=== PATIENT | female | born 1965 | race Caucasian/White ===

== ENCOUNTER 2017-01-16 13:07 | Emergency (ER) | payer SELFPAY ==
[~2017-01-16 13:07] MED LIST: ATARAX PO; TYLENOL ES500 MG PO
== END 2017-01-16 14:15 | disposition left against medical advice (07) ==
LOC: MED 13:12
DX: M54.9 Dorsalgia, unspecified (principal); Z53.21 Procedure and treatment not carried out due to patient leaving prior to being seen by health care provider

== ENCOUNTER 2017-08-01 17:57 | Inpatient (IN) | payer MEDICAID ==
[~2017-08-01] VITALS: Ht 154.9 cm; Wt 92.5 kg
[~2017-08-01 17:57] MED LIST changes: +ACET-6134 PO; -ATARAX PO; -TYLENOL ES500 MG PO
[2017-08-01 18:09] VITALS: BP 157/94
--- NOTE | 2017-08-01 18:23 | NUR ---
Patient ambulated to bed 07.
--- NOTE | 2017-08-01 18:34 | NUR ---
DR WOLFF EVALUATING AAO PT WITH AT BEDSIDE
--- NOTE | 2017-08-01 18:34 | NUR ---
PATIENT PRESENTS TO ED WITH C/O LUQ PAIN 10/10 X 1 WK WITH NAUSEA; DENIES V/D HX; ANXIETY, DM, HTN RX; LANTIS, METOPROLOL, NAPROSIN, GABAPENTIN; SKIN IS PINK/WARM/DRY; AAOX4 WITH EVEN AND STEADY GAIT; LUNGS CLEAR BL; HR EVEN AND REGULAR; PT DENIES ANY FEVER, CP, SOB, OR COUGH AT THIS TIME; PATIENT STATES PAIN OF 10/10 AT THIS TIME; VSS; PATIENT POSITIONED FOR COMFORT; HOB ELEVATED; BEDRAILS UP X2; BED DOWN. ER MD MADE AWARE OF PT STATUS.
[2017-08-01] MEDS ORDERED: ONDANSETRON 4 MG/2 ML VIAL IVP ONE (18:40)
[2017-08-01] MEDS ORDERED: PANTOPRAZOLE 40 MG INJ VIAL IVP ONE (18:40)
[2017-08-01] MEDS ORDERED: LORazepam 2 MG/ML VIAL IVP ONE (18:40)
[2017-08-01] MEDS ORDERED: NACL 0.9% 1,000 ML IV SCH (18:40)
--- NOTE | 2017-08-01 18:40 | NUR ---
Dr. Mario evaluating patient at bedside.
[2017-08-01 18:52] LABS: BASOPHILS # (AUTO) 0.6 K/uL (0.00-0.22); EOSINOPHILS # (AUTO) 0.1 K/uL (0-0.4); HEMATOCRIT 40.3 % (36-48); HEMOGLOBIN 13.5 g/dL (12.0-16.0); LYMPHOCYTES # (AUTO) 3.7 K/uL (2.5-16.5); MEAN CORPUSCULAR HEMOGLOBIN 28 pg (27-31); MEAN CORPUSCULAR HGB CONC 34 g/dL (33-37); MEAN CORPUSCULAR VOLUME 85 fL (80-94); MONOCYTES # (AUTO) 1.1 K/uL (0.8-1.0); NEUTROPHILS # (AUTO) 6.6 K/uL (1.8-7.7); PLATELET COUNT (AUTO) 391 K/uL (140-450); RED BLOOD CELL COUNT(AUTO) 4.76 MIL/uL (4.20-5.40); RED CELL DISTRIBUTION WIDTH 12.2 % (11.6-13.7); WHITE BLOOD COUNT (AUTO) 12.1 K/uL (4.8-10.8)
[2017-08-01 18:55] LABS: APPEARANCE,URINE CLEAR (CLEAR); BILIRUBIN,URINE NEGATIVE (NEGATIVE); BLOOD, URINE 2+ (NEGATIVE); COLOR,URINE YELLOW (YELLOW); LEUKOCYTE ESTERASE ,URINE NEGATIVE (NEGATIVE); NITRITE, URINE NEGATIVE (NEGATIVE); PH,URINE 6.5 (5.0-9.0); UGLUCOSE NEGATIVE (NEGATIVE)
[2017-08-01 19:04] LABS: RBC,URINE 11-20 (MOD) /HPF (0-5); WBC,URINE NONE SEEN /HPF (0-5)
[2017-08-01 19:08] LABS: ANION GAP 13.4 (8-16); CARBON DIOXIDE 27.8 mmol/L (21-32); CREATININE 0.9 mg/dL (0.6-1.3); POTASSIUM 3.2 mmol/L (3.5-5.1)
[2017-08-01 19:14] LABS: ALBUMIN 4.4 g/dL (3.4-5.0); TOTAL BILIRUBIN 0.4 mg/dL (0.0-1.0)
--- NOTE | 2017-08-01 19:22 | NUR ---
Pt report given to Pim RN. Transfer of care at this time.
--- NOTE | 2017-08-01 19:23 | NUR ---
GOT REPORT FROM VESTA, PT. RESTING IN BED, NO S/SX OF DISTRESS NOTED.
[2017-08-01] MEDS ORDERED: KETOROLAC 30 MG/ML VIAL IVP ONE (19:25)
[2017-08-01] MEDS ORDERED: ACETAMINOPHEN 325 MG TAB PO PRN (19:45)
--- NOTE | 2017-08-01 20:05 | NUR ---
Note marlyn in ED - 08/01/17 at 2107 by [facility] Patient will be admitted to care of . Admited to TELEMETRY. Will go to [id number]. Belongings list completed. Report to ANYA WARE.
--- NOTE | 2017-08-01 20:05 | NUR ---
Patient will be admitted to care of . Admited to TELEMETRY. Will go to room 110B. Belongings list completed. Report to ANYA WARE.
[2017-08-01 20:10] VITALS: BP 147/81
--- NOTE | 2017-08-01 20:10 | NUR ---
ADMITTED A 51F FROM ER. CAME BY EMILIO DUE TO LT LOWER QUADRANT ABDOMINAL PAIN WITH NAUSEA X1 WEEK. PT ON TELE MONITOR. AWAKE,ALERT AND ORIENTED X4. WITH FAMILY AT BEDSIDE. DENIES ANY PAIN A THIS TIME. SKIN ASSESSMENT DONE. SKIN INTACT. AMBULATE WITH SOME DIFFICULTY DUE TO HER SCIATIC NERVE PAIN PROBLEM. SHE SAID SHE HAD X 5 EPISODE OF DIARRHEA TODAY BUT IN SMALL AMOUNT. ORIENTED TO HOSPITAL ROUTINES , BED ON LOW POSITION,CALL LIGHT PLACED WITHIN EASY REACH. DR. HOLLAND CAME AND SEEN PT. WILL FOLLOW UP ADMIT ORDERS.
[2017-08-01 20:13] LABS: PROTHROMBIN TIME 11.2 secs (10.8-13.4)
[2017-08-01 20:18] LABS: BARBITURATE, URINE NEG. ng/ml (NEG <=200); BENZODIAZEPINE, URINE NEG. ng/mL (NEG <=200); CANNABINOID, URINE NEG. ng/mL (NEG <=50); COCAINE, URINE NEG. ng/mL (NEG <=300); OPIATE, URINE NEG. ng/mL (NEG <=2000); PHENCYCLIDINE SCREEN,URINE NEG. ng/mL (NEG <=25)
[2017-08-01 20:27] LABS: CHOL/HDL RATIO 5.1 (1-4.5); FREE T4 (FREE THYROXINE) 1.38 ng/dL (0.76-1.46); MAGNESIUM 1.9 mg/dL (1.8-2.4); PHOSPHORUS 3.1 mg/dL (2.5-4.9); THYROID STIMULATING HORMONE 0.82 uIU/mL (0.34-3.74)
[2017-08-01] MEDS: NACL 0.9% 1,000 ML IV SCH (20:34)
[2017-08-01] MEDS ORDERED: [UNRECOGNIZED DRUG - CODE] IV (20:55)
[2017-08-01] MEDS ORDERED: LORazepam 2 MG/ML VIAL IM/IVP PRN (20:55)
[2017-08-01] MEDS ORDERED: KCL 20 MEQ/WATER INJ PREMIX 200 ML IV SCH (21:00)
[2017-08-01] MEDS: INSULIN DETEMIR 100 UNITS/ML 10 ML VIAL SUBQ SCH (21:00)
[2017-08-01] MEDS: DOCUSATE SODIUM 100 MG GELCAP PO SCH (21:00)
--- NOTE | 2017-08-01 21:30 | NUR ---
BLOOD SUGAR WAS CHECKED AND RESULT 92. PT HASN'T BEEN EATING. LEVEMIR INSULIN DUE NOT GIVEN. WILL HAVE DR. HOLLAND AWARE.
[2017-08-01] MEDS ORDERED: INSULIN LISPRO SLIDING SCALE 100 UNITS/ML VIAL SUBQ PRN (21:45)
[2017-08-01] MEDS ORDERED: DEXTROSE 50% 50 ML SYR IVP PRN (21:45)
--- NOTE | 2017-08-01 22:59 | NUR ---
KCL RIDER INFUSING BUT PT C/O OF TOO MUCH PAIN FROM THE IV MEDS. SHE REFUSED TO HAVE IT CONTINUE. PAGED DR. HOLLAND. CALLED BACK AND MADE AWARE. WILL CHANGED ORDER TO PO INSTEAD.
[2017-08-01] MEDS ORDERED: POTASSIUM CHLORIDE 10 MEQ TABER PO SCH (23:30)
[2017-08-02 00:24] VITALS: BP 143/85
--- NOTE | 2017-08-02 01:58 | NUR ---
PT HR ON THE MONITOR 143. CHECKED ON PT. AWAKE, JUST GOT BACK FORM THE BATHROOM. NO DISTRESS NOTED. JUST NAUSEATED. WILL MEDICATE ORDERED.
[2017-08-02] MEDS: ONDANSETRON 4 MG/2 ML VIAL IVP PRN ×3 (02:07→14:11)
--- NOTE | 2017-08-02 02:07 | NUR ---
AWAKE, JUST GOT UP TO THE BATHROOM. C/O OF NAUSEA. MEDICATED WITH ZOFRAN 4MG IVP ORDERED. WILL CONTINUE TO MONITOR.
--- NOTE | 2017-08-02 02:40 | NUR ---
MADE ROUNDS. PT ASLEEP. NO DISCOMFORT NOR PAIN NOTED. WILL CONTINUE TO MONITOR.
[2017-08-02 04:10] VITALS: BP 128/64
--- NOTE | 2017-08-02 05:45 | NUR ---
CALLED RADIOLOGY AND FOLLOW UP THE US KIDNEY, US VENOUS AND ARTERIAL ORDERS. TALKED TO KRYSTAL WALSH, SHE SAID US TECH TO BE HERE @ 0630 AM TODAY.
[2017-08-02] MEDS: BLOOD GLUCOSE MONITORING 1 DEV DEV FS SCH ×4 (06:17→21:00)
--- NOTE | 2017-08-02 06:17 | NUR ---
BLOOD SUGAR WAS CHECKED THIS AM RESULT 121. NO INSULIN COVERAGE NEEDED.
[2017-08-02 06:43] LABS: BASOPHILS # (AUTO) 0.4 K/uL (0.00-0.22); BASOPHILS % (AUTO) 3.5 % (0.0-2.0); EOSINOPHILS # (AUTO) 0.1 K/uL (0-0.4); EOSINOPHILS % (AUTO) 0.8 % (0.0-4.0); HEMATOCRIT 38.1 % (36-48); LYMPHOCYTES # (AUTO) 2.8 K/uL (2.5-16.5); LYMPHOCYTES % (AUTO) 26.8 % (20.5-51.1); MEAN CORPUSCULAR HEMOGLOBIN 29 pg (27-31); MEAN CORPUSCULAR HGB CONC 34 g/dL (33-37); MEAN CORPUSCULAR VOLUME 85 fL (80-94); MONOCYTES # (AUTO) 0.7 K/uL (0.8-1.0); MONOCYTES % (AUTO) 6.9 % (1.7-9.3); NEUTROPHILS # (AUTO) 6.6 K/uL (1.8-7.7); PLATELET COUNT (AUTO) 345 K/uL (140-450); RED BLOOD CELL COUNT(AUTO) 4.51 MIL/uL (4.20-5.40); RED CELL DISTRIBUTION WIDTH 12.3 % (11.6-13.7); WHITE BLOOD COUNT (AUTO) 10.6 K/uL (4.8-10.8)
[2017-08-02 07:00] LABS: CREATININE 0.8 mg/dL (0.6-1.3)
[2017-08-02 07:07] LABS: PHOSPHORUS 3.5 mg/dL (2.5-4.9)
--- NOTE | 2017-08-02 07:15 | NUR ---
RECEIVED PT REPORT FROM MACHINE REBUILDER NURSE AT BEDSIDE. PT IS AOX4. PT SHOWED NO S/S OF ACUTE DISTRESS. NO C/O PAIN AT THIS TIME. SKIN INTACT. IV NOTED ON THE RIGHT HAND, PATENT, AND INFUSING WELL. CALL LIGHT WITHIN REACH. BED LOWERED AND CALL LIGHT WITHIN REACH. WILL CONTINUE TO MONITOR.
--- NOTE | 2017-08-02 07:15 | NUR ---
ENDORSED PT IN STABLE CONDITION TO AM NURSE.
[2017-08-02 08:00] VITALS: BP 144/78
--- NOTE | 2017-08-02 08:45 | NUR ---
CM NOTE SPOKE WITH [facility] JOSE MCKEON. PER JOSE MCKEON, FOR ANY DISCHARGE NEEDS TO SEND TO [facility]. INITIAL REVIEW FAXED TO [facility] [phone] PH# [phone] AND TO [facility] [phone] JOSE MCKEON PH# [phone].
[2017-08-02] MEDS ORDERED: METOPROLOL SUCCINATE 50 MG TABER PO SCH (09:00)
--- NOTE | 2017-08-02 09:00 | NUR ---
PT KEPT NPO AFTER BREAKFAST. PT WALKED AROUND THE UNIT W/ HER . NO ACUTE S/S OF DISTRESS OR C/O PAIN. WILL CONTINUE TO MONITOR.
[2017-08-02] MEDS ORDERED: METO25TE2 PO (09:22)
--- NOTE | 2017-08-02 09:52 | NUR ---
PATIENT HAS BEEN SCREENED AND CATEGORIZED HIGH NUTRITION RISK. PATIENT WILL BE SEEN WITHIN 1-2 DAYS OF ADMISSION. 08/02/17-08/03/[address]
[2017-08-02] MEDS: DOCUSATE SODIUM 100 MG GELCAP PO SCH ×2 (09:58→21:57)
[2017-08-02] MEDS ORDERED: CALCIUM CARB/VIT-D 500 MG/200 IU 1 TAB PO SCH (10:30)
[2017-08-02] MEDS ORDERED: ATORVASTATIN 20 MG TAB PO SCH (10:30)
[2017-08-02 12:00] VITALS: BP 139/77
[2017-08-02] MEDS ORDERED: MAGNESIUM CITRATE 300 ML BTL PO SCH (12:00)
[2017-08-02] MEDS: LACTULOSE 20 GM/30 ML UDC PO SCH ×3 (12:59→21:57)
[2017-08-02] MEDS: SENNA 8.6 MG TAB PO SCH ×2 (12:59→16:55)
--- NOTE | 2017-08-02 13:50 | NUR ---
PT C/O OF NAUSEA AND ANXIETY, HOWEVER, PT DO NOT WANT THE IVP ATIVAN. NOTIFIED DR AND REQUESTED PO ATIVAN.
[2017-08-02] MEDS ORDERED: LORazepam 1 MG TAB PO PRN (14:05)
[2017-08-02] MEDS: NACL 0.9% 1,000 ML IV SCH (15:00)
[2017-08-02 16:18] VITALS: BP 152/80
[2017-08-02] MEDS: METOPROLOL SUCCINATE 50 MG TABER PO SCH (16:56)
--- NOTE | 2017-08-02 17:00 | NUR ---
PT WAS SLEEPING AND NO S/S OF RESPIRATORY DISTRESS. WILL CONTINUE TO MONITOR.
--- NOTE | 2017-08-02 19:43 | NUR ---
ENDORSED PT IN STABLE CONDITION TO PM NURSE.
--- NOTE | 2017-08-02 19:44 | NUR ---
RECEIVED REPORT FROM DAY NURSE, PT IS IN STABLE CONDITION. PT IS AAOX4, ON RA. PT IS AMBULATORY. IV TO R HAND 20G PATENT AND INTACT, INFUSING WELL. SKIN IS INTACT. RESPIRATIONS ARE EVEN AND UNLABORED. SKIN IS WARM AND DRY TO TOUCH. BOWEL SOUNDS ACTIVE. INITIAL ASSESSMENT COMPLETE. PLAN OF CARE DISCUSSED WITH PT AT THE BEDSIDE, VERBALIZED UNDERSTANDING. ALL SAFETY PRECAUTIONS MET, CALL LIGHT WITHIN REACH, WILL CONTINUE TO MONITOR
[2017-08-02 20:00] VITALS: BP 135/79
[2017-08-02] MEDS: INSULIN DETEMIR 100 UNITS/ML 10 ML VIAL SUBQ SCH (21:00)
--- NOTE | 2017-08-02 22:00 | NUR ---
PT REFUSED LEVEMIR AT THIS TIME. PT STATES, "THAT IS NOT NORMALLY WHAT I TAKE AT HOME, I DO NOT NEED THAT, DON'T GIVE IT TO ME." PTS BS 105 AT THIS TIME. PT EDUCATED ON RISKS OF NOT TAKING AND BENEFITS OF MEDICATION, PT VERBALIZED UNDERSTANDING.
[2017-08-03] VITALS: BP 137/77
[2017-08-03 04:00] VITALS: BP 127/54
[2017-08-03 06:51] LABS: BASOPHILS # (AUTO) 0.2 K/uL (0.00-0.22); BASOPHILS % (AUTO) 1.9 % (0.0-2.0); EOSINOPHILS # (AUTO) 0.1 K/uL (0-0.4); EOSINOPHILS % (AUTO) 1.1 % (0.0-4.0); HEMATOCRIT 40.6 % (36-48); HEMOGLOBIN 13.6 g/dL (12.0-16.0); LYMPHOCYTES # (AUTO) 3.3 K/uL (2.5-16.5); LYMPHOCYTES % (AUTO) 31.9 % (20.5-51.1); MEAN CORPUSCULAR HEMOGLOBIN 29 pg (27-31); MEAN CORPUSCULAR HGB CONC 34 g/dL (33-37); MEAN CORPUSCULAR VOLUME 85 fL (80-94); MONOCYTES # (AUTO) 0.9 K/uL (0.8-1.0); MONOCYTES % (AUTO) 8.4 % (1.7-9.3); NEUTROPHILS # (AUTO) 5.9 K/uL (1.8-7.7); NEUTROPHILS % (AUTO) 56.7 % (42.2-75.2); PLATELET COUNT (AUTO) 354 K/uL (140-450); RED BLOOD CELL COUNT(AUTO) 4.79 MIL/uL (4.20-5.40); RED CELL DISTRIBUTION WIDTH 12.1 % (11.6-13.7); WHITE BLOOD COUNT (AUTO) 10.4 K/uL (4.8-10.8)
[2017-08-03 07:14] LABS: CARBON DIOXIDE 31.3 mmol/L (21-32); CREATININE 0.8 mg/dL (0.6-1.3); POTASSIUM 3.3 mmol/L (3.5-5.1)
[2017-08-03] MEDS ORDERED: POTASSIUM CHLORIDE 10 MEQ TABER PO SCH (07:20)
[2017-08-03 07:24] LABS: MAGNESIUM 2.3 mg/dL (1.8-2.4); PHOSPHORUS 3.5 mg/dL (2.5-4.9)
[2017-08-03] MEDS: BLOOD GLUCOSE MONITORING 1 DEV DEV FS SCH ×3 (07:24→16:42)
--- NOTE | 2017-08-03 07:36 | NUR ---
ENDORSED PLAN OF CARE TO AM NURSE FOR CONTINUITY OF CARE, PT IN STABLE CONDITION. NO S/S OF DISTRESS NOTED.
--- NOTE | 2017-08-03 07:38 | NUR ---
RECEIVED REPORT FROM INSIDE SALES ADVISOR NURSE, PT IS SLEEPING IN BED BUT EASILY AWAKEN, PT IS A/OX4, AMBULATORY, PT HAS IV ON THE RT HAND, PATENT, INTACT, FLUSHING WELL, NO S/S OF RESPIRATORY DISTRESS OR DISCOMFORT NOTED, DISCUSSED PLAN OF CARE WITH PT, PT VERBALIZED UNDERSTANDING, SAFETY/FALL PRECAUTIONS ARE IN PLACE, CALL LIGHT IS WITHIN REACH, WILL CONTINUE TO MONITOR.
[2017-08-03 08:00] VITALS: BP 134/75
[2017-08-03] MEDS: DOCUSATE SODIUM 100 MG GELCAP PO SCH (09:00)
[2017-08-03] MEDS ORDERED: ATORVASTATIN 20 MG TAB PO SCH (09:00)
[2017-08-03] MEDS ORDERED: CALCIUM CARB/VIT-D 500 MG/200 IU 1 TAB PO SCH (09:00)
[2017-08-03] MEDS: SENNA 8.6 MG TAB PO SCH ×2 (09:00→13:00)
[2017-08-03] MEDS: LACTULOSE 20 GM/30 ML UDC PO SCH ×2 (09:00→13:00)
--- NOTE | 2017-08-03 10:37 | NUR ---
CM NOTE CONCURRENT REVIEW FAXED TO [facility] [phone] PH# [phone] AND TO [facility] [phone] JOSE MCKEON PH# [phone].
[2017-08-03] MEDS ORDERED: MIDAZOLAM 2 MG/2 ML VIAL ONE (11:15)
[2017-08-03] MEDS ORDERED: fentaNYL 0.05 MG/ML VIAL ONE (11:15)
[2017-08-03] MEDS ORDERED: diphenhydrAMINE 50 MG/ML VIAL ONE (11:15)
--- NOTE | 2017-08-03 11:47 | NUR ---
PT OFF UNIT AT THIS TIME TO HAVE PROCEDURE DONE. PT LEFT IN STABLE CONDITION.
[2017-08-03] MEDS: NACL 0.9% 1,000 ML IV SCH (12:25)
--- NOTE | 2017-08-03 13:25 | NUR ---
PT RETURNED TO UNIT VIA GURNEY, PT IS DROWSY, CURRENT BP 132/76, HR: 82, O2:94%, TEMP:97.5 NO S/S OF RESPIRATORY DISTRESS OR DISCOMFORT NOTED, PATIENT'S FAMILY MEMBER IS AT BEDSIDE.
[2017-08-03] MEDS ORDERED: MIDAZOLAM 2 MG/2 ML VIAL IVP ONE (13:45)
[2017-08-03] MEDS ORDERED: fentaNYL 0.05 MG/ML VIAL IVP ONE (13:45)
[2017-08-03] MEDS ORDERED: diphenhydrAMINE 50 MG/ML VIAL IVP ONE (13:45)
--- NOTE | 2017-08-03 14:11 | NUR ---
08/03/17 RD INITIAL ASSESSMENT COMPLETED PLEASE REFER TO NUTRITION ASSESSMENT UNDER CARE ACTIVITY FOR ESTIMATED NUTRITIONAL NEEDS. 1. ONCE PT CLEARED FOR DIET CONSIDER CCHO 60 GM DIET TOLERATED PER MD 2. RD PROVIDED PT AND PT FAMILY WITH DM DIET EDUCATION 3. RD TO FOLLOW-UP 3-5 DAYS, MODERATE RISK CALE IBRAHIM RD
[2017-08-03] MEDS ORDERED: PSYLLIUM 12.2 GM/PKT PO SCH (14:20)
--- NOTE | 2017-08-03 15:30 | NUR ---
PT RESTING IN BED, NO S/S OF RESPIRATORY DISTRESS OR DISCOMFORT NOTED, CALL LIGHT WITHIN REACH.
[2017-08-03] MEDS ORDERED: CALC-846 PO (15:56)
[2017-08-03] MEDS ORDERED: ATOR20TA40 PO (15:56)
[2017-08-03] MEDS ORDERED: LORA-476 PO (15:56)
[2017-08-03] MEDS ORDERED: METPCK PO (15:56)
[2017-08-03] MEDS ORDERED: PAX10 PO (15:56)
[2017-08-03] MEDS ORDERED: ONDA8TAB PO (15:56)
[2017-08-03] MEDS ORDERED: DOCU-299 PO (15:56)
[2017-08-03] MEDS ORDERED: glucometer (15:56)
[2017-08-03] MEDS ORDERED: BLOO1STR56 FS (15:56)
[2017-08-03] MEDS ORDERED: ELA10 PO ×2 (15:56→16:17)
[2017-08-03] MEDS ORDERED: LUBI24SG4 PO (15:59)
[2017-08-03 16:00] VITALS: BP 132/73
[2017-08-03] MEDS ORDERED: METF500T PO (16:17)
[2017-08-03] MEDS: METOPROLOL SUCCINATE 50 MG TABER PO SCH (16:49)
--- NOTE | 2017-08-03 17:35 | NUR ---
PT DISCHARGE INSTRUCTIONS GIVEN, ID WRIST BAND REMOVED, IV REMOVED, CATHETER TIP INTACT. PT STABLE UPON DISCHARGE ACCOMPANIED BY HER .
[2017-08-03] MEDS ORDERED: AMITRIPTYLINE 10 MG TAB PO SCH (21:00)
[2017-08-04] MEDS ORDERED: DOCU100C16 PO (01:58)
[2017-08-04] MEDS ORDERED: CALC-53 PO (01:58)
[2017-08-04] MEDS ORDERED: PSYLLIUM 12.2 GM/PKT PO SCH (09:00)
[2017-08-04] MEDS ORDERED: PARoxetine 10 MG TAB PO SCH (09:00)
== END 2017-08-03 17:35 | disposition home or self-care (01) | DRG 241 ==
LOC: MED 17:57 → MTU 19:49
PROVIDERS: ADMIT Family Medicine; ATTEND Family Medicine
PROC: 0DB68ZX Excision of Stomach, Via Natural or Artificial Opening Endoscopic, Diagnostic (ICD-10-PCS; principal; 2017-08-03 11:30)
PROC: 0DJD8ZZ Inspection of Lower Intestinal Tract, Via Natural or Artificial Opening Endoscopic (ICD-10-PCS; 2017-08-03 11:30)
DX: K29.71 Gastritis, unspecified, with bleeding (principal); D68.59 Other primary thrombophilia; E11.51 Type 2 diabetes mellitus with diabetic peripheral angiopathy without gangrene; E11.65 Type 2 diabetes mellitus with hyperglycemia; E83.51 Hypocalcemia; K58.1 Irritable bowel syndrome with constipation; G89.29 Other chronic pain; F41.9 Anxiety disorder, unspecified; E78.2 Mixed hyperlipidemia; R31.9 Hematuria, unspecified; K31.7 Polyp of stomach and duodenum; E66.9 Obesity, unspecified; E87.6 Hypokalemia; I10 Essential (primary) hypertension; Z88.6 Allergy status to analgesic agent; Z88.2 Allergy status to sulfonamides; Z79.4 Long term (current) use of insulin; Z88.8 Allergy status to other drugs, medicaments and biological substances; Z79.899 Other long term (current) drug therapy; Z90.710 Acquired absence of both cervix and uterus; Z98.891 History of uterine scar from previous surgery; Z83.3 Family history of diabetes mellitus; Z83.49 Family history of other endocrine, nutritional and metabolic diseases; Z80.8 Family history of malignant neoplasm of other organs or systems; Z71.3 Dietary counseling and surveillance; Z68.38 Body mass index [BMI] 38.0-38.9, adult
CPT/HCPCS: 36415; 71010; 76770; 80048; 80053; 80305; 81001; 81025; 82150; 82948; 83036; 83690; 83735; 83880; 84100; 84439; 84443; 84484; 85025; 85610; 85730; 86677; 87081; 93005; 93925; 93970; 96361; 96374; 96375; 99285; C9113; J1200; J1815; J1885; J2060; J2250; J2405; J3010; J3480; J7030; Q0092

== ENCOUNTER 2019-05-18 03:30 | Emergency (ER) | payer MEDICAID ==
[~2019-05-18] VITALS: Ht 154.9 cm; Wt 90.7 kg
[~2019-05-18 03:30] MED LIST changes: -ACET-6134 PO; +BLOO1STR56 FS; +INSU100S22 SUBQ; +METO25TE2 PO; +glucometer
[2019-05-18 03:35] VITALS: BP 150/84
--- NOTE | 2019-05-18 03:35 | NUR ---
TO BED # 11 AMBULATORY
--- NOTE | 2019-05-18 03:40 | NUR ---
53 Y/O FEMALE PRESENTS TO ED, C/O HEADACHE 05/04. 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 PT UNABLE TO ALLEVIATE PAIN. STATES HAVING NAUSEA BUT NO VOMITTING SINCE HEADACHE STARTED. PT C/O ALLERGIES, RASH ON CHEST AND BILAT ARM. NO SOB/CHEST PAIN. PT HAS HX OF DM AND HTN. PT VSS. ERMD AWARE. WILL CONTINUE TO MONITOR.
[2019-05-18] MEDS ORDERED: diphenhydrAMINE 50 MG/ML VIAL IVP ONE (03:45)
[2019-05-18] MEDS ORDERED: METOCLOPRAMIDE 10 MG/2 ML INJ VIAL IVP ONE (03:45)
[2019-05-18] MEDS ORDERED: NACL 0.9% 1,000 ML IV ONE (03:45)
[2019-05-18] MEDS ORDERED: LORazepam 2 MG/ML VIAL IVP ONE (04:05)
[2019-05-18 04:23] LABS: BASOPHILS # (AUTO) 0.1 K/uL (0.00-0.22); BASOPHILS % (AUTO) 0.5 % (0.0-2.0); EOSINOPHILS # (AUTO) 0.4 K/uL (0-0.4); EOSINOPHILS % (AUTO) 2.9 % (0.0-4.0); HEMATOCRIT 38.7 % (36-48); LYMPHOCYTES # (AUTO) 4.5 K/uL (2.5-16.5); LYMPHOCYTES % (AUTO) 36.5 % (20.5-51.1); MEAN CORPUSCULAR HEMOGLOBIN 28 pg (27-31); MEAN CORPUSCULAR HGB CONC 34 g/dL (33-37); MEAN CORPUSCULAR VOLUME 83.5 fL (80-94); MONOCYTES % (AUTO) 7.8 % (1.7-9.3); NEUTROPHILS # (AUTO) 6.5 K/uL (1.8-7.7); NEUTROPHILS % (AUTO) 52.3 % (42.2-75.2); PLATELET COUNT (AUTO) 338 K/uL (140-450); RED BLOOD CELL COUNT(AUTO) 4.64 MIL/uL (4.20-5.40); RED CELL DISTRIBUTION WIDTH 13.2 % (11.6-13.7); WHITE BLOOD COUNT (AUTO) 12.4 K/uL (4.8-10.8)
[2019-05-18 04:26] LABS: APPEARANCE,URINE CLEAR (CLEAR); BILIRUBIN,URINE NEGATIVE (NEGATIVE); BLOOD, URINE 1+ (NEGATIVE); COLOR,URINE YELLOW (YELLOW); LEUKOCYTE ESTERASE ,URINE NEGATIVE (NEGATIVE); NITRITE, URINE NEGATIVE (NEGATIVE); UGLUCOSE NEGATIVE (NEGATIVE)
[2019-05-18 04:37] LABS: WBC,URINE 0-5 /HPF (0-5)
[2019-05-18 04:41] LABS: ANION GAP 13.3 (8-16); CARBON DIOXIDE 29.3 mmol/L (21-32); CREATININE 0.9 mg/dL (0.6-1.3); POTASSIUM 3.6 mmol/L (3.5-5.1)
[2019-05-18 04:48] LABS: ALBUMIN 3.9 g/dL (3.4-5.0); TOTAL BILIRUBIN 0.3 mg/dL (0.0-1.0)
[2019-05-18 04:55] VITALS: BP 141/80
--- NOTE | 2019-05-18 04:55 | NUR ---
PT DISCHARGED WITH PAPERWORK. RX VALIUM. EDUCATED PT REGARDING MEDICATION AND S/E. EDUCATED PT REGARDING D/C DIAGNOSIS. PT VERBALIZED UNDERSTANDING OF TEACHING. TOLD PT TO FOLLOW UP WITH PCP AND WHEN TO RETURN TO ED. PT VSS. ALL QUESTIONS ANSWERED.
--- NOTE | 2019-05-21 07:18 | NUR ---
LATE ENTRY: PULLED OUT ATIVAN 2MG/1ML. PULLED FULL DOSE FROM PYXIS BUT WASTED 1MG WITH ALICIA ELIZALDE RN. Addendum: 05/21/19 at 0734 by [email or web address] LATE ENTRY: PULLED OUT ATIVAN 2MG/1ML. PULLED FULL DOSE FROM PYXIS BUT WASTED 1MG WITH ALICIA ELIZALDE RN ON 05/18/19 0405.
== END 2019-05-18 04:55 | disposition home or self-care (01) ==
LOC: MED 03:30
DX: B34.9 Viral infection, unspecified (principal); R51 Headache; E11.9 Type 2 diabetes mellitus without complications; I10 Essential (primary) hypertension; Z79.4 Long term (current) use of insulin; Z79.899 Other long term (current) drug therapy; Z88.5 Allergy status to narcotic agent; Z88.2 Allergy status to sulfonamides
CPT/HCPCS: 36415; 80053; 81001; 83690; 85025; 96374; 96375; 99283; J1200; J2060; J2765; J7030

== ENCOUNTER 2022-05-09 18:34 | Emergency (ER) | payer MEDICAID ==
[~2022-05-09] VITALS: Ht 154.9 cm; Wt 99.9 kg
[2022-05-09 18:55] VITALS: BP 150/70
[2022-05-09 19:57] LABS: BASOPHILS # (AUTO) 0.2 K/uL (0.00-0.22); EOSINOPHILS # (AUTO) 0.2 K/uL (0-0.4); EOSINOPHILS % (AUTO) 1.1 % (0.0-4.0); HEMATOCRIT 39.4 % (36-48); HEMOGLOBIN 13.2 g/dL (12.0-16.0); LYMPHOCYTES # (AUTO) 4.9 K/uL (2.5-16.5); LYMPHOCYTES % (AUTO) 30.1 % (20.5-51.1); MEAN CORPUSCULAR HEMOGLOBIN 28 pg (27-31); MEAN CORPUSCULAR HGB CONC 34 g/dL (33-37); MONOCYTES # (AUTO) 1.1 K/uL (0.8-1.0); MONOCYTES % (AUTO) 6.6 % (1.7-9.3); NEUTROPHILS % (AUTO) 61.2 % (42.2-75.2); PLATELET COUNT (AUTO) 360 K/uL (140-450); RED BLOOD CELL COUNT(AUTO) 4.69 MIL/uL (4.20-5.40); RED CELL DISTRIBUTION WIDTH 13.4 % (11.6-13.7); WHITE BLOOD COUNT (AUTO) 16.3 K/uL (4.8-10.8)
[2022-05-09 20:15] LABS: ALBUMIN 4.2 g/dL (3.4-5.0); ANION GAP 13.7 (8-16); CARBON DIOXIDE 29.5 mmol/L (21-32); CREATININE 1.1 mg/dL (0.6-1.3); POTASSIUM 4.2 mmol/L (3.5-5.1); TOTAL BILIRUBIN 0.3 mg/dL (0.0-1.0)
--- NOTE | 2022-05-09 20:52 | NUR ---
PT AMBUALTED TO BED#3
--- NOTE | 2022-05-09 21:09 | NUR ---
56 Y/O F BIB SELF C/O R SIDE FLANK TO RUQ PAIN. 10/10 PAIN THAT STARTED A WEEK AGO. NO PAIN WHEN URINATING BUT HAS HAD DIAHRREA RECENTLY A LOT. PAIN IS WORSE WITH MOVEMENT. ALLERGY: SULFA, CODIENE, HX: DM, HTN, ANXIETY
--- NOTE | 2022-05-09 21:36 | NUR ---
DR JAMES AT BEDSIDE.
[2022-05-09] MEDS ORDERED: KETOROLAC 60 MG/2 ML VIAL IM ONE (21:45)
[2022-05-09] MEDS ORDERED: IBUP-2213 PO (21:47)
[2022-05-09] MEDS ORDERED: OMEP40EC24 PO (21:47)
[2022-05-09 21:55] VITALS: BP 140/75
--- NOTE | 2022-05-09 21:58 | NUR ---
Patient discharged with v/s stable. Written and verbal after care instructions given and explained. Patient alert, oriented and verbalized understanding of instructions. Ambulatory with steady gait. All questions addressed prior to discharge. ID band removed. Patient advised to follow up with PMD. Rx of IBUPROFEN, OMEPRAZOLE given. Opportunity to ask questions provided and answered.
--- NOTE | 2022-05-09 22:03 | NUR ---
The patient's care was reviewed and supervised by Tosha Medina RN.
== END 2022-05-09 21:59 | disposition home or self-care (01) ==
LOC: MED 18:34
DX: R10.9 Unspecified abdominal pain (principal); I10 Essential (primary) hypertension; E11.9 Type 2 diabetes mellitus without complications; D64.9 Anemia, unspecified; Z88.2 Allergy status to sulfonamides; Z88.5 Allergy status to narcotic agent; Z79.891 Long term (current) use of opiate analgesic; Z79.4 Long term (current) use of insulin; Z79.899 Other long term (current) drug therapy; Z90.710 Acquired absence of both cervix and uterus; Z98.890 Other specified postprocedural states
CPT/HCPCS: 36415; 74176; 80053; 81002; 81025; 83690; 85025; 96372; 99284; J1885

== ENCOUNTER 2023-12-27 18:25 | Emergency (ER) | payer MEDICAID ==
[~2023-12-27] VITALS: Ht 154.9 cm; Wt 100.9 kg
[~2023-12-27 18:25] MED LIST changes: +IBUP-2213 PO; +OMEP40EC24 PO
[2023-12-27 18:31] VITALS: BP 154/69; PULSE 98; TEMP 97.8; O2SAT 98
[2023-12-27] MEDS ORDERED: OFLO5SOL27 RIGHT EAR (19:21)
[2023-12-27] MEDS: ONDANSETRON 4 MG ODT PO ONE (19:58)
[2023-12-27 20:00] VITALS: BP 154/69; PULSE 98; TEMP 97.8; O2SAT 98
== END 2023-12-27 20:00 | disposition home or self-care (01) ==
LOC: MED 18:25
DX: H60.91 Unspecified otitis externa, right ear (principal); E11.9 Type 2 diabetes mellitus without complications; I10 Essential (primary) hypertension; Z79.1 Long term (current) use of non-steroidal anti-inflammatories (NSAID); Z88.2 Allergy status to sulfonamides; Z79.899 Other long term (current) drug therapy; Z88.8 Allergy status to other drugs, medicaments and biological substances
CPT/HCPCS: 82948; 99283; Q0162